=== PATIENT | female | born 1950 | race Caucasian/White ===

== ENCOUNTER 2016-06-04 12:23 | Emergency (ER) | payer OTHER, MEDICAID ==
[~2016-06-04] VITALS: Ht 162.6 cm; Wt 95.0 kg
[~2016-06-04 12:23] MED LIST: ALBU18HF INH; ALPR1TAB2 PO; AMLO5TAB4 PO; CARB200T13 PO; CARB200T4 PO; CEFD300C2 PO; CEPH-368 PO; CITA20TA5 PO; CLON0.1T PO; COLE1TAB2 PO; DIAZ10TA PO; DOCU-144 PO; ESZO1TAB6 PO; GABA300C10 PO; HYDR-3144 PO; HYDR2TAB13 PO; LEVO1CAP10; LEVO40CA PO; LISI-170 PO; LISI5TAB7 PO; MAGN64TA9 PO; METH750T2 PO; METH750T87 PO; METR500T PO; MIRT45TA4 PO; MIRT7.5T8 PO; MONT10TA9 PO; NITR0.4T8 SL; OMEP-110 PO; OMEP40CA6 PO; OXYB5TAB7 PO; OXYC1TAB6 PO; PROP20TA PO; QUET100T PO; QUET50TA PO; TEMA30CA PO; TRAZ150T68 PO; TRAZ50TA18 PO
[2016-06-04] MEDS ORDERED: SODIUM CHLORIDE FLUSH 10ML SYR IVF ONE (13:00)
[2016-06-04 13:36] LABS: HEMOGLOBIN 11.5 g/dL (11.7-16.4)
[2016-06-04 13:44] LABS: ASPARTATE AMINO TRANSFERASE 12 U/L (15-37); BLOOD UREA NITROGEN 17 mg/dL (7-18)
[2016-06-04] MEDS ORDERED: OMNIPAQUE 350 MG/ML, 100ML BOTTLE ONE (15:30)
[2016-06-04 15:50] VITALS: BP 145/79
== END 2016-06-04 17:38 | disposition home or self-care (01) ==
LOC: ED 17:32
DX: J44.0 Chronic obstructive pulmonary disease with (acute) lower respiratory infection (principal); J20.9 Acute bronchitis, unspecified; I10 Essential (primary) hypertension; I25.2 Old myocardial infarction; J45.909 Unspecified asthma, uncomplicated
CPT/HCPCS: 36415; 71010; 71275; 80053; 83605; 83880; 84484; 85025; 85610; 85730; 87040; 93005; 99285; Q9967

== ENCOUNTER 2016-11-05 15:11 | Emergency (ER) | payer OTHER, MEDICAID ==
[~2016-11-05 15:11] MED LIST changes: -CEFD300C2 PO; +CEFD300C37 PO; -ESZO1TAB6 PO; +ESZO1TAB8 PO; -HYDR-3144 PO; +HYDR-3245 PO; -HYDR2TAB13 PO; +HYDR2TAB29 PO; +NITR0.4T28 SL; -NITR0.4T8 SL; +TRAZ150T62 PO; -TRAZ150T68 PO
[2016-11-05] MEDS ORDERED: SODIUM CHLORIDE 0.9% 1,000 ML IV ONE (15:31)
[2016-11-05] MEDS ORDERED: SODIUM CHLORIDE 0.9% 1,000ML IVBOLUS ONE (16:00)
[2016-11-05 16:05] LABS: HEMATOCRIT 38.6 % (34.6-47.8); WHITE BLOOD COUNT 6.7 x10^3/uL (3.4-10)
[2016-11-05 16:21] LABS: ASPARTATE AMINO TRANSFERASE 16 U/L (15-37); BLOOD UREA NITROGEN 34 mg/dL (7-18)
[2016-11-05 16:25] LABS: IS PT STATUS REG ER OR PRE ER? YES
[2016-11-05] MEDS ORDERED: HYDR-3245 PO (16:59)
[2016-11-05] MEDS ORDERED: ESLI200T PO (16:59)
[2016-11-05] MEDS ORDERED: DIPHENHYDRAMINE 50 MG/ML, 1ML IVPush ONE (17:00)
[2016-11-05] MEDS ORDERED: PROCHLORPERAZINE 5 MG/ML, 2ML IVPush ONE (17:00)
[2016-11-05] MEDS ORDERED: DIPHENHYDRAMINE 50 MG/ML, 1ML ONE (17:11)
[2016-11-05] MEDS ORDERED: PROCHLORPERAZINE 5 MG/ML, 2ML ONE (17:11)
[2016-11-05] MEDS ORDERED: MORPHINE SULFATE 4 MG/ML, 1ML ONE (18:59)
[2016-11-05] MEDS ORDERED: MORPHINE SULFATE 4 MG/ML, 1ML IVPush ONE (19:00)
[2016-11-05 20:13] VITALS: BP 129/54
== END 2016-11-05 20:15 | disposition home or self-care (01) ==
LOC: ED 18:28
DX: G43.919 Migraine, unspecified, intractable, without status migrainosus (principal); R11.2 Nausea with vomiting, unspecified
CPT/HCPCS: 36415; 70450; 71010; 80053; 84484; 85025; 85610; 85730; 93005; 96361; 96374; 96375; 99285; J0780; J1200; J7030

== ENCOUNTER 2017-07-13 19:24 | Inpatient (IN) | payer MEDICAID, OTHER ==
[~2017-07-13] VITALS: Ht 157.5 cm; Wt 89.2 kg
[~2017-07-13 19:24] MED LIST changes: +ESLI200T PO; -MAGN64TA9 PO; +MAGNESIUM DR64 MG PO
[2017-07-13 20:16] LABS: BASOPHILS # (AUTO) 0.03 x10^3/uL (0-0.1); BASOPHILS % (AUTO) 0 % (0-1); EOSINOPHILS # (AUTO) 0.18 x10^3/uL (0-0.4); EOSINOPHILS % (AUTO) 2 % (1-7); LYMPHOCYTES # (AUTO) 1.13 x10^3/uL (1-3.4); LYMPHOCYTES % (AUTO) 14 % (22-44); MD NO; MEAN CORPUSCULAR HEMOGLOBIN 29.8 pg (27.0-34.8); MEAN CORPUSCULAR HGB CONC 33.7 g/dL (32.4-35.8); MEAN CORPUSCULAR VOLUME 88.6 fL (80-100); MEAN PLATELET VOLUME 8.6 fL (7.4-10.4); MONOCYTES # (AUTO) 0.44 x10^3/uL (0.2-0.8); MONOCYTES % (AUTO) 5 % (2-9); NEUTROPHILS # (AUTO) 6.46 x10^3/uL (1.8-6.8); NEUTROPHILS % (AUTO) 78 % (42-75); PLATELET COUNT 197 x10^3/uL (130-400); RED BLOOD COUNT 3.66 x10^6/uL (3.82-5.3); RED CELL DISTRIBUTION WIDTH 13.4 % (9.6-15.2)
[2017-07-13 20:24] LABS: INTERNATIONAL NORMALIZED RATIO 0.98 (0.93-1.1); PROTHROMBIN TIME 10.2 Seconds (9.6-11.5)
[2017-07-13 20:25] LABS: ALANINE AMINOTRANSFERASE 24 U/L (12-78); ALBUMIN 3.5 g/dL (3.4-5.0); ANION GAP 6 mmol/L (5-15); CALCIUM 8.2 mg/dL (8.5-10.1); CHLORIDE 112 mmol/L (98-107); CREATININE 1.02 mg/dL (0.55-1.02)
[2017-07-13 20:30] LABS: ALKALINE PHOSPHATASE 48 U/L (45-117); BILIRUBIN,TOTAL 0.4 mg/dL (0.2-1.0); TOTAL PROTEIN 6.6 g/dL (6.4-8.2); TROPONIN I < 0.015 ng/mL (0.000-0.045)
[2017-07-13 20:58] LABS: MICROSCOPIC AUTO
[2017-07-13] MEDS: SODIUM CHLORIDE 0.9% 1,000 ML IV SCH (21:00)
[2017-07-13 21:02] LABS: CULTURE INDICATED? YES
[2017-07-13] MEDS ORDERED: CIPROFLOXACIN/PMX 400MG/200ML 200 ML IV ONE (21:30)
[2017-07-13] MEDS ORDERED: CIPROFLOXACIN/PMX 400MG/200ML 200 ML ONE (21:31)
[2017-07-13] MEDS: CIPROFLOXACIN/PMX 400MG/200ML 200 ML IV SCH (22:12)
[2017-07-13] MEDS ORDERED: METHOCARBAMOL 750 MG TABLET PO PRN (22:30)
[2017-07-13] MEDS ORDERED: ACETAMINOPHEN 325 MG TABLET PO PRN (22:30)
[2017-07-13] MEDS ORDERED: ALBUTEROL SULFATE 2.5 MG/3 ML HHN PRN (22:30)
[2017-07-13] MEDS ORDERED: BISACODYL 10 MG SUPP PR PRN (22:30)
[2017-07-13] MEDS ORDERED: POLYETHYLENE GLYCOL 17 GM PACKET PO PRN (22:30)
[2017-07-13] MEDS ORDERED: ONDANSETRON 2MG/ML, 2ML IVPush PRN (22:30)
[2017-07-13 23:09] VITALS: BP 163/85
[2017-07-13] MEDS: HYDROcodone/APAP 10/325 MG TABLET PO PRN (23:43)
[2017-07-13] MEDS: LISINOPRIL 20 MG TABLET PO SCH (23:43)
[2017-07-13] MEDS: COLESTIPOL 1 GM TABLET PO SCH (23:43)
[2017-07-13] MEDS: MONTELUKAST 10 MG TABLET PO SCH (23:43)
[2017-07-13] MEDS: MIRTAZAPINE 15 MG TABLET PO SCH (23:43)
[2017-07-13] MEDS: PROPRANOLOL 20 MG TABLET PO SCH (23:44)
[2017-07-13] MEDS: HEPARIN 5,000 UNITS/ML, 1ML SQ SCH (23:44)
[2017-07-13] MEDS: OXYBUTYNIN CHLORIDE 5 MG TABLET PO SCH (23:44)
[2017-07-13] MEDS: CARBAMAZEPINE 200 MG TABLET PO SCH (23:44)
[2017-07-14 03:16] VITALS: BP 117/73
[2017-07-14 04:45] LABS: BASOPHILS # (AUTO) 0.02 x10^3/uL (0-0.1); BASOPHILS % (AUTO) 0 % (0-1); EOSINOPHILS # (AUTO) 0.32 x10^3/uL (0-0.4); EOSINOPHILS % (AUTO) 5 % (1-7); LYMPHOCYTES # (AUTO) 1.76 x10^3/uL (1-3.4); LYMPHOCYTES % (AUTO) 26 % (22-44); MD NO; MEAN CORPUSCULAR HGB CONC 33.4 g/dL (32.4-35.8); MEAN CORPUSCULAR VOLUME 89.9 fL (80-100); MEAN PLATELET VOLUME 8.4 fL (7.4-10.4); MONOCYTES % (AUTO) 7 % (2-9); NEUTROPHILS # (AUTO) 4.28 x10^3/uL (1.8-6.8); NEUTROPHILS % (AUTO) 62 % (42-75); PLATELET COUNT 185 x10^3/uL (130-400); RED BLOOD COUNT 3.41 x10^6/uL (3.82-5.3); RED CELL DISTRIBUTION WIDTH 13.5 % (9.6-15.2)
[2017-07-14 04:56] LABS: ANION GAP 6 mmol/L (5-15); CALCIUM 7.8 mg/dL (8.5-10.1); CHLORIDE 115 mmol/L (98-107)
[2017-07-14 05:00] LABS: ALANINE AMINOTRANSFERASE 22 U/L (12-78); ALKALINE PHOSPHATASE 36 U/L (45-117); BILIRUBIN,TOTAL 0.5 mg/dL (0.2-1.0); CREATINE KINASE, TOTAL 373 U/L (26-192); TOTAL PROTEIN 5.7 g/dL (6.4-8.2)
[2017-07-14] MEDS: ESLICARBAZEPINE ACETATE 400 MG HOMEMEDPO SCH (09:00)
[2017-07-14] MEDS: CARBAMAZEPINE 200 MG TABLET PO SCH ×3 (09:00→21:29)
[2017-07-14] MEDS: LEVOMILNACIPRAN HYDROCHLORIDE 40 MG HOMEMEDPO SCH (09:00)
[2017-07-14 09:03] VITALS: BP 131/64
[2017-07-14] MEDS: HEPARIN 5,000 UNITS/ML, 1ML SQ SCH ×2 (09:35→17:03)
[2017-07-14] MEDS: PROPRANOLOL 20 MG TABLET PO SCH ×2 (09:36→21:12)
[2017-07-14] MEDS: OMEPRAZOLE 20 MG CAPSULE.DR PO SCH (09:36)
[2017-07-14] MEDS: LISINOPRIL 20 MG TABLET PO SCH ×2 (09:36→21:12)
[2017-07-14] MEDS: CITALOPRAM 20 MG TABLET PO SCH (09:36)
[2017-07-14] MEDS: SENNA/DOCUSATE TABLET PO SCH (09:36)
[2017-07-14] MEDS: OXYBUTYNIN CHLORIDE 5 MG TABLET PO SCH ×2 (09:36→21:12)
[2017-07-14] MEDS: COLESTIPOL 1 GM TABLET PO SCH ×2 (09:36→21:12)
[2017-07-14] MEDS: SODIUM CHLORIDE 0.9% 1,000 ML IV SCH ×2 (09:49→20:27)
[2017-07-14] MEDS: HYDROcodone/APAP 10/325 MG TABLET PO PRN ×2 (09:49→17:02)
[2017-07-14] MEDS: CIPROFLOXACIN/PMX 400MG/200ML 200 ML IV SCH (10:41)
[2017-07-14 15:55] VITALS: BP_SYST 136; BP_SYST 161; BP_DIAS 74; BP_DIAS 95
[2017-07-14 19:37] VITALS: BP 161/74
[2017-07-14] MEDS: MONTELUKAST 10 MG TABLET PO SCH (21:11)
[2017-07-14] MEDS: MIRTAZAPINE 15 MG TABLET PO SCH (21:12)
[2017-07-14] MEDS: FLUTICASONE NASAL SPRAY 16GM NAS SCH (21:43)
[2017-07-14] MEDS: SODIUM CHLORIDE NASAL SPRAY 45ML BOTTLE NAS SCH (21:44)
[2017-07-15] MEDS: CIPROFLOXACIN/PMX 400MG/200ML 200 ML IV SCH ×2 (00:15→12:20)
[2017-07-15 01:05] VITALS: BP 130/77
[2017-07-15] MEDS: HEPARIN 5,000 UNITS/ML, 1ML SQ SCH ×3 (01:44→17:08)
[2017-07-15 04:51] LABS: ANION GAP 6 mmol/L (5-15); CALCIUM 7.5 mg/dL (8.5-10.1); CHLORIDE 115 mmol/L (98-107)
[2017-07-15 04:54] LABS: CREATININE 0.83 mg/dL (0.55-1.02)
[2017-07-15 04:55] LABS: CREATINE KINASE, TOTAL 231 U/L (26-192)
[2017-07-15 05:01] LABS: BASOPHILS # (AUTO) 0.03 x10^3/uL (0-0.1); BASOPHILS % (AUTO) 1 % (0-1); EOSINOPHILS # (AUTO) 0.34 x10^3/uL (0-0.4); EOSINOPHILS % (AUTO) 6 % (1-7); LYMPHOCYTES # (AUTO) 1.84 x10^3/uL (1-3.4); LYMPHOCYTES % (AUTO) 35 % (22-44); MD NO; MEAN CORPUSCULAR HEMOGLOBIN 29.9 pg (27.0-34.8); MEAN CORPUSCULAR HGB CONC 33.2 g/dL (32.4-35.8); MEAN CORPUSCULAR VOLUME 90.1 fL (80-100); MEAN PLATELET VOLUME 8.2 fL (7.4-10.4); MONOCYTES # (AUTO) 0.42 x10^3/uL (0.2-0.8); MONOCYTES % (AUTO) 8 % (2-9); NEUTROPHILS # (AUTO) 2.65 x10^3/uL (1.8-6.8); NEUTROPHILS % (AUTO) 50 % (42-75); PLATELET COUNT 186 x10^3/uL (130-400); RED BLOOD COUNT 3.49 x10^6/uL (3.82-5.3); RED CELL DISTRIBUTION WIDTH 14.1 % (9.6-15.2)
[2017-07-15] MEDS: SODIUM CHLORIDE 0.9% 1,000 ML IV SCH (05:38)
[2017-07-15 07:44] VITALS: BP 185/75
[2017-07-15] MEDS: ESLICARBAZEPINE ACETATE 400 MG HOMEMEDPO SCH (08:16)
[2017-07-15] MEDS: LEVOMILNACIPRAN HYDROCHLORIDE 40 MG HOMEMEDPO SCH (08:16)
[2017-07-15] MEDS: SODIUM CHLORIDE NASAL SPRAY 45ML BOTTLE NAS SCH ×2 (08:17→22:11)
[2017-07-15] MEDS: FLUTICASONE NASAL SPRAY 16GM NAS SCH ×2 (08:17→22:11)
[2017-07-15] MEDS: OXYBUTYNIN CHLORIDE 5 MG TABLET PO SCH ×2 (08:18→22:03)
[2017-07-15] MEDS: OMEPRAZOLE 20 MG CAPSULE.DR PO SCH (08:18)
[2017-07-15] MEDS: CARBAMAZEPINE 200 MG TABLET PO SCH ×2 (08:18→22:04)
[2017-07-15] MEDS: PROPRANOLOL 20 MG TABLET PO SCH ×2 (08:18→22:04)
[2017-07-15] MEDS: CITALOPRAM 20 MG TABLET PO SCH (08:19)
[2017-07-15] MEDS: SENNA/DOCUSATE TABLET PO SCH (08:19)
[2017-07-15] MEDS: LISINOPRIL 20 MG TABLET PO SCH ×2 (08:19→22:03)
[2017-07-15] MEDS: COLESTIPOL 1 GM TABLET PO SCH ×2 (08:19→23:06)
[2017-07-15] MEDS: HYDROcodone/APAP 10/325 MG TABLET PO PRN ×3 (08:24→22:03)
[2017-07-15] MEDS ORDERED: hydrALAzine 20 MG/ML, 1ML IV PRN (08:30)
[2017-07-15 13:12] VITALS: BP 176/74
[2017-07-15 19:25] VITALS: BP 187/80
[2017-07-15] MEDS: hydrALAzine 20 MG/ML, 1ML IV PRN (19:33)
[2017-07-15] MEDS: DIAZEPAM 2 MG TABLET PO PRN ×2 (20:20→21:20)
[2017-07-15] MEDS: MONTELUKAST 10 MG TABLET PO SCH (22:04)
[2017-07-15] MEDS: MIRTAZAPINE 15 MG TABLET PO SCH (22:05)
[2017-07-15] MEDS ORDERED: SODIUM CHLORIDE 0.9% 1,000 ML IV SCH (22:11)
[2017-07-16] MEDS: CIPROFLOXACIN/PMX 400MG/200ML 200 ML IV SCH (00:06)
[2017-07-16 01:29] VITALS: BP_SYST 181; BP_SYST 200; BP_DIAS 76; BP_DIAS 77
[2017-07-16] MEDS: HEPARIN 5,000 UNITS/ML, 1ML SQ SCH ×4 (01:30→18:00)
[2017-07-16] MEDS: hydrALAzine 20 MG/ML, 1ML IV PRN (02:32)
[2017-07-16] MEDS: HYDROcodone/APAP 10/325 MG TABLET PO PRN ×3 (04:17→20:53)
[2017-07-16 06:03] LABS: ANION GAP 9 mmol/L (5-15); CALCIUM 8.2 mg/dL (8.5-10.1); CHLORIDE 114 mmol/L (98-107)
[2017-07-16 06:08] LABS: CREATINE KINASE, TOTAL 185 U/L (26-192); CREATININE 0.77 mg/dL (0.55-1.02)
[2017-07-16] MEDS: LEVOMILNACIPRAN HYDROCHLORIDE 40 MG HOMEMEDPO SCH (09:00)
[2017-07-16] MEDS: ESLICARBAZEPINE ACETATE 400 MG HOMEMEDPO SCH (09:00)
[2017-07-16] MEDS ORDERED: SULFAMETH./TRIMETHOPRIM DS 800MG/160MG TABLET PO SCH (09:00)
[2017-07-16] MEDS: OXYBUTYNIN CHLORIDE 5 MG TABLET PO SCH ×2 (09:16→20:54)
[2017-07-16] MEDS: LISINOPRIL 20 MG TABLET PO SCH ×2 (09:16→20:53)
[2017-07-16] MEDS: COLESTIPOL 1 GM TABLET PO SCH ×2 (09:16→20:53)
[2017-07-16] MEDS: SENNA/DOCUSATE TABLET PO SCH (09:16)
[2017-07-16] MEDS: PROPRANOLOL 20 MG TABLET PO SCH ×2 (09:16→20:54)
[2017-07-16] MEDS: OMEPRAZOLE 20 MG CAPSULE.DR PO SCH (09:17)
[2017-07-16] MEDS: CITALOPRAM 20 MG TABLET PO SCH (09:17)
[2017-07-16] MEDS: SODIUM CHLORIDE NASAL SPRAY 45ML BOTTLE NAS SCH ×2 (09:18→20:53)
[2017-07-16] MEDS: FLUTICASONE NASAL SPRAY 16GM NAS SCH ×2 (09:18→20:52)
[2017-07-16] MEDS: CETIRIZINE 10 MG TABLET PO PRN (09:19)
[2017-07-16] MEDS: AMLODIPINE 2.5 MG TABLET PO SCH (09:19)
[2017-07-16] MEDS ORDERED: LEVETIRACETAM 500 MG TABLET PO SCH (13:00)
[2017-07-16 15:43] VITALS: BP 188/84
[2017-07-16] MEDS: DIAZEPAM 10 MG TABLET PO PRN (18:07)
[2017-07-16 19:08] VITALS: BP 174/77
[2017-07-16] MEDS: CARBAMAZEPINE 200 MG TABLET PO SCH (20:54)
[2017-07-16] MEDS: MIRTAZAPINE 15 MG TABLET PO SCH (20:54)
[2017-07-16] MEDS: SULFAMETH./TRIMETHOPRIM DS 800MG/160MG TABLET PO SCH (20:54)
[2017-07-16] MEDS: MONTELUKAST 10 MG TABLET PO SCH (20:54)
[2017-07-16] MEDS: LEVETIRACETAM 500 MG TABLET HOMEMEDPO SCH (20:55)
[2017-07-17 00:47] VITALS: BP 144/61
[2017-07-17] MEDS: HEPARIN 5,000 UNITS/ML, 1ML SQ SCH ×2 (02:00→07:41)
[2017-07-17 07:13] VITALS: BP 193/83
[2017-07-17] MEDS: HYDROcodone/APAP 10/325 MG TABLET PO PRN (07:35)
[2017-07-17] MEDS: SODIUM CHLORIDE NASAL SPRAY 45ML BOTTLE NAS SCH (07:36)
[2017-07-17] MEDS: FLUTICASONE NASAL SPRAY 16GM NAS SCH (07:36)
[2017-07-17] MEDS: COLESTIPOL 1 GM TABLET PO SCH (07:38)
[2017-07-17] MEDS: AMLODIPINE 2.5 MG TABLET PO SCH (07:38)
[2017-07-17] MEDS: PROPRANOLOL 20 MG TABLET PO SCH (07:38)
[2017-07-17] MEDS: OMEPRAZOLE 20 MG CAPSULE.DR PO SCH (07:38)
[2017-07-17] MEDS: OXYBUTYNIN CHLORIDE 5 MG TABLET PO SCH (07:38)
[2017-07-17] MEDS: CETIRIZINE 10 MG TABLET PO PRN (07:38)
[2017-07-17] MEDS: LEVETIRACETAM 500 MG TABLET HOMEMEDPO SCH (07:39)
[2017-07-17] MEDS: CARBAMAZEPINE 200 MG TABLET PO SCH (07:39)
[2017-07-17] MEDS: SULFAMETH./TRIMETHOPRIM DS 800MG/160MG TABLET PO SCH (07:40)
[2017-07-17] MEDS: LEVOMILNACIPRAN HYDROCHLORIDE 40 MG HOMEMEDPO SCH (07:40)
[2017-07-17] MEDS: CITALOPRAM 20 MG TABLET PO SCH (07:40)
[2017-07-17] MEDS: ESLICARBAZEPINE ACETATE 400 MG HOMEMEDPO SCH (07:40)
[2017-07-17] MEDS: SENNA/DOCUSATE TABLET PO SCH (07:41)
[2017-07-17] MEDS: LISINOPRIL 20 MG TABLET PO SCH (07:41)
[2017-07-17] MEDS ORDERED: AMLODIPINE 5 MG TABLET PO SCH (09:00)
[2017-07-17] MEDS ORDERED: LISINOPRIL 20 MG TABLET PO SCH (09:00)
[2017-07-17] MEDS: DIAZEPAM 10 MG TABLET PO PRN (09:10)
[2017-07-17] MEDS: hydrALAzine 20 MG/ML, 1ML IV PRN (09:12)
[2017-07-17 09:15] VITALS: BP 184/90
== END 2017-07-17 11:57 | disposition left against medical advice (07) | DRG 557 ==
LOC: ED 22:02 → EDIP 22:04 → 3NW 22:40 → 3NE 07-15 14:26
PROVIDERS: ADMIT Internal Medicine; ATTEND Internal Medicine
PROC: 0T9B70Z Drainage of Bladder with Drainage Device, Via Natural or Artificial Opening (ICD-10-PCS; principal; 2017-07-13)
DX: M62.82 Rhabdomyolysis (principal); G93.41 Metabolic encephalopathy; J96.10 Chronic respiratory failure, unspecified whether with hypoxia or hypercapnia; S09.90XA Unspecified injury of head, initial encounter; N12 Tubulo-interstitial nephritis, not specified as acute or chronic; F11.20 Opioid dependence, uncomplicated; N39.0 Urinary tract infection, site not specified; W01.0XXA Fall on same level from slipping, tripping and stumbling without subsequent striking against object, initial encounter; B96.20 Unspecified Escherichia coli [E. coli] as the cause of diseases classified elsewhere; J44.9 Chronic obstructive pulmonary disease, unspecified; D64.9 Anemia, unspecified; F32.9 Major depressive disorder, single episode, unspecified; G40.909 Epilepsy, unspecified, not intractable, without status epilepticus; G89.29 Other chronic pain; I10 Essential (primary) hypertension; K21.9 Gastro-esophageal reflux disease without esophagitis; R29.6 Repeated falls; G43.909 Migraine, unspecified, not intractable, without status migrainosus; M54.9 Dorsalgia, unspecified; R30.0 Dysuria; I25.2 Old myocardial infarction; Z83.3 Family history of diabetes mellitus; Z88.0 Allergy status to penicillin; Z90.710 Acquired absence of both cervix and uterus; Z90.49 Acquired absence of other specified parts of digestive tract; Y93.89 Activity, other specified; Y92.89 Other specified places as the place of occurrence of the external cause; Y99.8 Other external cause status
CPT/HCPCS: 36415; 70450; 80048; 80053; 80307; 81001; 82550; 84484; 85025; 85610; 85730; 87040; 87077; 87086; 87186; 93005; 99285; J0744; J1644; J0360; J7030